=== PATIENT | female | born 1950 | race Two or more races ===

== ENCOUNTER 2019-01-13 19:32 | Emergency (ER) | payer MEDICARE, OTHER ==
[~2019-01-13] VITALS: Ht 167.6 cm; Wt 79.4 kg
[2019-01-13] MEDS ORDERED: KETOROLAC TROMETH 60MG/2ML VIAL IM ONE (21:00)
[2019-01-13] MEDS ORDERED: HYDROcodone-ACET 10/325MG TAB PO ONE (21:00)
[2019-01-13 21:10] VITALS: BP 144/66
== END 2019-01-13 22:00 | disposition home or self-care (01) ==
LOC: EDBD 19:32 → ER 19:36
DX: S96.912A Strain of unspecified muscle and tendon at ankle and foot level, left foot, initial encounter (principal); S96.911A Strain of unspecified muscle and tendon at ankle and foot level, right foot, initial encounter; M89.672 Osteopathy after poliomyelitis, left ankle and foot; B91 Sequelae of poliomyelitis; W18.39XA Other fall on same level, initial encounter; Y93.89 Activity, other specified; Y99.8 Other external cause status; Y92.89 Other specified places as the place of occurrence of the external cause
CPT/HCPCS: 73610; 73630; 96372; 99283; J1885